=== PATIENT | female | born 1960 | race Caucasian/White ===

== ENCOUNTER 2018-03-03 12:30 | Emergency (ER) | payer BC ==
[~2018-03-03] VITALS: Ht 172.7 cm; Wt 169.6 kg
[2018-03-03] MEDS ORDERED: LISINOPRIL-HCT1 EAC1 PO (13:05)
[2018-03-03] MEDS ORDERED: METOPROLOL SUCC25 MG PO (13:05)
[2018-03-03] MEDS ORDERED: POTASSIUM CHLO10 ME2 PO (13:06)
[2018-03-03] MEDS ORDERED: NORVASC5 MG PO (13:06)
[2018-03-03] MEDS ORDERED: ASPIRIN81 MG PO (13:07)
[2018-03-03] MEDS ORDERED: SIMVASTATIN20 MG PO (13:07)
[2018-03-03] MEDS ORDERED: NAPROSYN500 MG PO (14:51)
[2018-03-03] MEDS ORDERED: MACROBID 100 M100 MG PO (14:51)
== END 2018-03-03 16:45 | disposition home or self-care (01) ==
LOC: ED 12:30
DX: E27.8 Other specified disorders of adrenal gland (principal); I10 Essential (primary) hypertension; Z88.5 Allergy status to narcotic agent; Z79.899 Other long term (current) drug therapy; Z79.82 Long term (current) use of aspirin
CPT/HCPCS: 74177; 80053; 81001; 85025; 99284; Q9967

== ENCOUNTER 2020-04-15 12:22 | Emergency (ER) | payer BC ==
[~2020-04-15] VITALS: Ht 172.7 cm; Wt 169.6 kg
[~2020-04-15 12:22] MED LIST: ASPIRIN81 MG PO; LISINOPRIL-HCT1 EAC1 PO; MACROBID 100 M100 MG PO; METOPROLOL SUCC25 MG PO; NAPROSYN500 MG PO; NORVASC5 MG PO; POTASSIUM CHLO10 ME2 PO; SIMVASTATIN20 MG PO
[2020-04-15] MEDS ORDERED: ELIQUIS5 MG PO (13:23)
[2020-04-15] MEDS ORDERED: CLOTRIM ANTIFUN15 GM TOP (13:24)
[2020-04-15] MEDS ORDERED: FUROSEMIDE40 MG PO (13:24)
[2020-04-15] MEDS ORDERED: NORCO 5-325 TA1 EACH PO (18:05)
== END 2020-04-15 18:16 | disposition home or self-care (01) ==
LOC: ED 12:22
DX: R31.0 Gross hematuria (principal); M54.5 Low back pain; I10 Essential (primary) hypertension; Z88.5 Allergy status to narcotic agent; Z79.899 Other long term (current) drug therapy; Z79.01 Long term (current) use of anticoagulants
CPT/HCPCS: 74176; 80053; 81001; 82550; 85025; 99284-25

== ENCOUNTER 2020-05-07 12:30 | Emergency (ER) | payer BC ==
[~2020-05-07] VITALS: Ht 172.7 cm; Wt 169.6 kg
[~2020-05-07 12:30] MED LIST changes: +CLOTRIM ANTIFUN15 GM TOP; +ELIQUIS5 MG PO; +FUROSEMIDE40 MG PO; +NORCO 5-325 TA1 EACH PO
--- OUTSIDE RECORDS SUMMARY | 2020-05-07 12:32 | XMS ---
PreManage Notification: ZULEIMA ALFORD Security [employer] Developer Events No recent Security Events currently on file CRITERIA MET - [facility] - 2 Visits in 30 Days CARE PROVIDERS Hanna Sung Nurse Practitioner: Family Current PHONE: [phone] Galo has no Care Guidelines for this patient. Radha VISIT COUNT (12 MO.) 2 [facility] TOTAL 2 NOTE: Visits indicate total known visits. ED/UCC VISIT TRACKING (12 MO.) 05/07/2020 12:31 [facility] TYPE: Emergency COMPLAINT: - LT ANKLE PAIN 04/15/2020 12:23 [facility] TYPE: Emergency COMPLAINT: - BACK PAIN, NON INJ DIAGNOSES: - Essential (primary) hypertension - Allergy status to narcotic agent status - Dorsalgia, unspecified - terminal operator (current) use of anticoagulants - Other fdc (current) drug therapy - Gross hematuria - Low back pain INPATIENT VISIT TRACKING (12 MO.) No inpatient visits to display in this time frame [email or web address]
[2020-05-07] MEDS ORDERED: TOPROL XL50 MG PO (13:13)
[2020-05-07] MEDS ORDERED: MORPHINE SULFAT15 MG PO (13:25)
[2020-05-07] MEDS ORDERED: ZOFRAN4 MG PO (13:25)
[2020-05-07] MEDS ORDERED: OXYCODONE HCL5 MG PO (13:59)
== END 2020-05-07 14:06 | disposition home or self-care (01) ==
LOC: ED 12:30
DX: M25.572 Pain in left ankle and joints of left foot (principal); I10 Essential (primary) hypertension; X50.9XXA Other and unspecified overexertion or strenuous movements or postures, initial encounter; Z88.5 Allergy status to narcotic agent; Z79.899 Other long term (current) drug therapy
CPT/HCPCS: 99283

== ENCOUNTER 2021-01-26 13:50 | Emergency (ER) | payer BC ==
[~2021-01-26] VITALS: Ht 172.7 cm; Wt 169.6 kg
[~2021-01-26 13:50] MED LIST changes: +MORPHINE SULFAT15 MG PO; +OXYCODONE HCL5 MG PO; +TOPROL XL50 MG PO; +ZOFRAN4 MG PO
--- OUTSIDE RECORDS SUMMARY | 2021-01-26 13:52 | XMS ---
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 Radha VISIT COUNT (12 MO.) [address] Anthony Rashaad TOTAL 5 NOTE: Visits indicate total known visits. ED/UCC VISIT TRACKING (12 MO.) 01/26/2021 13:50 [facility] TYPE: Emergency COMPLAINT: - STOMACH PAIN 07/17/2020 12:06 [facility] TYPE: Emergency DIAGNOSES: - Contact with and (suspected) exposure to other viral communicable diseases - +SCREENING/COVID TESTING 06/26/2020 12:38 [facility] TYPE: Emergency DIAGNOSES: - Disorder of kidney and ureter, unspecified - Other chest pain - SHORTNESS OF BREATH CHEST TIGHTNESS - Chronic atrial fibrillation, unspecified 05/07/2020 12:31 [facility] TYPE: Emergency COMPLAINT: - LT ANKLE PAIN NON INJ DIAGNOSES: - Essential (primary) hypertension - Allergy status to narcotic agent - Other prison (current) drug therapy - Pain in left ankle and joints of left foot - Other and unspecified overexertion or strenuous movements or postures, initial encounter 04/15/2020 12:23 [facility] TYPE: Emergency COMPLAINT: - BACK PAIN, NON INJ DIAGNOSES: - Essential (primary) hypertension - Allergy status to narcotic agent - Dorsalgia, unspecified - termite exterminator helper (current) use of anticoagulants - Other prison (current) drug therapy - Gross hematuria - Low back pain INPATIENT VISIT TRACKING (12 MO.) No inpatient visits to display in this time frame [email or web address]
[2021-01-26] MEDS ORDERED: COLCRYS0.6 MG PO (14:43)
[2021-01-26] MEDS ORDERED: METOPROLOL SUC100 MG PO (14:44)
[2021-01-26] MEDS ORDERED: LISINOPRIL20 MG PO (14:44)
[2021-01-26] MEDS ORDERED: ALLOPURINOL100 MG PO (14:46)
[2021-01-26] MEDS ORDERED: ATORVASTATIN CA20 MG PO (14:46)
== END 2021-01-26 20:58 | disposition home or self-care (01) ==
LOC: ED 13:50
DX: R10.11 Right upper quadrant pain (principal); I10 Essential (primary) hypertension; Z88.8 Allergy status to other drugs, medicaments and biological substances; Z88.5 Allergy status to narcotic agent; Z88.1 Allergy status to other antibiotic agents; Z79.899 Other long term (current) drug therapy
CPT/HCPCS: 74177; 80053; 81001; 83690; 85025; 99284-25; Q9967